=== PATIENT | female | born 1990 | race Caucasian/White ===

== ENCOUNTER 2017-08-27 11:33 | Emergency (ER) | payer OTHER ==
[~2017-08-27] VITALS: Ht 154.9 cm; Wt 57.6 kg
[2017-08-27] MEDS ORDERED: CLEOCIN300 MG PO (12:19)
[2017-08-27] MEDS ORDERED: NORCO 5/3251 TABLET PO (12:19)
[2017-08-27 12:37] VITALS: BP 106/74
== END 2017-08-27 12:41 | disposition home or self-care (01) ==
LOC: EME 11:33
DX: T63.301A Toxic effect of unspecified spider venom, accidental (unintentional), initial encounter (principal); L03.311 Cellulitis of abdominal wall; F17.200 Nicotine dependence, unspecified, uncomplicated
CPT/HCPCS: 99281; 99284